=== PATIENT | male | born 1985 | race Caucasian/White ===

== ENCOUNTER → 2018-12-11 | Outpatient (CLI) | payer OTHER ==
--- NOTE | 2018-12-13 13:00 | REP ---
CT CERVICAL SPINE WITHOUT CONTRAST: HISTORY: Low back pain. The patient is status-post C6-7 disc replacement. There is no acute fracture or subluxation. The spinal canal and neural foramina are patent. The intervertebral discs are normal in height. IMPRESSION:The patient is status-post C6-7 disc replacement. There is anatomic alignment. Electronically Signed by Lewis Barrow MD 12/13/2018 01:28 P
--- NOTE | 2018-12-13 13:00 | REP ---
CT LUMBAR SPINE WITHOUT CONTRAST: HISTORY: Back pain. There is no disc bulge or herniation at the L1-2 through L3-4 and L5-S1 levels. The nerves exit the neural foramina without compression. A diffuse disc bulge is present at the L4-5 level. There is minimal compression of the thecal sac. The L4 nerves exit the neural foramina without compression. The lumbar intervertebral discs are normal in height . There is no fracture or subluxation. IMPRESSION:Diffuse disc bulge at the L4-5 level with minimal thecal sac compression. Electronically Signed by Lewis Barrow MD 12/13/2018 01:28 P
== END ==
LOC: M RAD 16:52
PROVIDERS: ATTEND Physician Assistant
DX: M54.5 Low back pain (principal); Z98.1 Arthrodesis status